=== PATIENT | male | born 1995 | race Caucasian/White ===

== ENCOUNTER 2018-08-25 05:30 | Day surgery (SDC) | payer OTHER ==
[~2018-08-25] VITALS: Ht 180.3 cm; Wt 98.0 kg
[2018-08-25 10:27] VITALS: BP 147/80
[2018-08-25] MEDS ORDERED: NORCO 5-325 TA1 EACH PO (13:15)
[2018-08-25 13:40] VITALS: BP 147/80
--- NOTE | 2018-08-28 16:10 | PATH ---
[facility] [address] [place] [address] PATHOLOGY RPT PROCEDURE Name: GAUTHIERJOEY GULSHAN Room #: DEP [facility] M.R.#: [id number] Admission: 08/25/18 Date of : 89 Discharge: 08/25/18 Report #: [id number] Path Case #: [id number] [facility] Accession Number: [id number] . 01 Material submitted: . PILONIDAL CYST . 01 Clinical history: . Pilonidal cyst. . 02 Diagnosis: Pilonidal cyst, excision: - Marked acute and chronic inflammation along with abscess formation associated with Vellus hair as well as giant cell reaction, compatible with a pilonidal cyst. - Appears completely excised. . (IUV:at;08/28/2018) QTA/08/28/2018 . 02 Electronically signed: . Manuela Andres MD, Pathologist NPI- [id number] . 01 Gross description: . Received in formalin labeled "Joey Gauthier, pilonidal cyst" is an excision of yellow-wolf fibrotic soft tissue measuring 5.5 x 2.7 x 2.2 cm. There is an ellipse of wolf-white skin on one aspect measuring 4.8 x 1.3 x 0.4 cm. There is a groove in the skin surface measuring 2.5 x 0.1 cm. Upon sectioning, the cut surface displays a cystic structure measuring 3.3 cm in greatest dimension. A sales representative jewelry section is submitted in cassette A1. ([facility]; 08/27/2018) SYC/SYC . 02 Pathologist provided ICD-10: L05.91 . 02 CPT . 922659 Specimen Comment: A courtesy copy of this report has been sent to Specimen Comment: [phone]. Specimen Comment: Report sent to Performed at: [address], [place] [id number] MD Claude Alvarado MD Phone: [phone] Performed at: 02 [address] [place] [address] PATHOLOGY RPT PROCEDURE Name: JOEY GAUTHIER [place] Room #: DEP [facility] M.Tamy#: [id number] Admission: 08/25/18 Date of : [birth year] Discharge: 08/25/18 Report #: [id number] Path Case #: [id number] [address], [place] [id number] MD Manuela Andres MD Phone: [phone]
--- NOTE | 2018-08-31 11:30 | O ---
[facility] [place] [address] OPERATIVE REPORT Name: JOEY GAUTHIER Room #: DEP [facility].#: [id number] Admission: 08/25/18 Attend Phys: Isaac Sparks MD Discharge: 08/25/18 Date of : [birth year] Report #: [id number] THIS REPORT FOR: //name// CC: Isaac Mitchell MD PREOPERATIVE DIAGNOSIS: Pilonidal cyst. POSTOPERATIVE DIAGNOSIS: Pilonidal cyst. PROCEDURES PERFORMED: Pilonidal cystectomy. ANESTHESIA: General prone position. COMPLICATIONS: None. ESTIMATED BLOOD LOSS: 10 mL. SURGEON: Isaac Sparks M.D. PROCEDURE NOTE: With the patient under general anesthesia, placed in the prone position. IV antibiotic was administered. Timeout was performed. The presacral area was prepped and draped in sterile fashion. 0.25% Marcaine was used to anesthetize the skin. An ellipse of skin was made surrounding the indentation. I did probe the large indentation and the probe did go in about a centimeter, but that did not go any further. An ellipse of skin was excised surrounding the abnormal skin in the midline. It was carried down through the skin and subcutaneous tissue down to the fascia level. Fascia was preserved. The specimen was excised. Irrigation was performed, hemostasis obtained. The deep subQ was closed with 2-0 PDS. The more superficial subQ was closed with 3-0 PDS. Skin was closed with 4-0 nylon. The patient tolerated procedure well. 4 x 4 and OpSite were placed over the wound. The patient was taken to recovery room. <ELECTRONICALLY SIGNED> By: Isaac Sparks MD 08/31/18 [id number] Isaac Sparks MD /nt
== END 2018-08-25 14:45 | disposition home or self-care (01) ==
LOC: OR 05:30 → TBA 05:31 → OR 11:17
DX: L05.01 Pilonidal cyst with abscess (principal); Z98.890 Other specified postprocedural states
CPT/HCPCS: 50010; 50101; 62110; 62900; 70005